=== PATIENT | male | born 1970 | race Asian ===

== ENCOUNTER 2019-06-11 06:09 | Day surgery (SDC) | payer OTHER ==
[~2019-06-11] VITALS: Ht 167.6 cm; Wt 77.1 kg
[2019-06-11] MEDS ORDERED: POLYMYXIN 500,000/BACIT.10,000 UNITS in NS IRR 1 L IR ONE (06:54)
[2019-06-11] MEDS ORDERED: NEOSTIGMINE METHYLSULFATE 1 MG/ML, 10 ML VIAL IVP ONE (07:02)
[2019-06-11] MEDS ORDERED: MIDAZOLAM HCL 5 MG/5 ML VIAL IVP ONE (07:02)
[2019-06-11] MEDS ORDERED: TRIAMCINOLONE ACETONIDE 40 MG/ML IM ONE (07:02)
[2019-06-11] MEDS ORDERED: fentaNYL CITRATE 250 MCG/5 ML AMP IV ONE (07:02)
[2019-06-11] MEDS ORDERED: LR 1,000 ML IV.SOLN IV ONE (07:02)
[2019-06-11] MEDS ORDERED: GLYCOPYRROLATE 0.2 MG/ML VIAL IJ ONE (07:02)
[2019-06-11] MEDS ORDERED: ONDANSETRON HCL 4 MG/2 ML VIAL IVP ONE (07:02)
[2019-06-11] MEDS ORDERED: ROCURONIUM BROMIDE 10 MG/ML (ZEMURON) IV ONE (07:02)
[2019-06-11] MEDS ORDERED: LIDOCAINE/EPI 1% 1:100000 20 ML VIAL INJ ONE (07:02)
[2019-06-11] MEDS ORDERED: PROPOFOL 200MG/ 20ML VIAL (DIPRIVAN) IV ONE (07:02)
[2019-06-11] MEDS ORDERED: BACITRACIN ZINC 15 GM TOPICAL OINTMENT TP ONE (07:02)
[2019-06-11] MEDS ORDERED: DEXAMETHASONE SOD PHOSPHATE 4 MG/ML VIAL IVP ONE (07:02)
[2019-06-11] MEDS ORDERED: SEVOFLURANE 15 MIN GAS INH ONE (07:02)
[2019-06-11] MEDS ORDERED: CEFAZOLIN 1 GM IVPB PREMIX 50 ML IV ONE (07:25)
[2019-06-11] MEDS ORDERED: LR 1,000 ML IV SCH (08:16)
[2019-06-11] MEDS ORDERED: METOCLOPRAMIDE HCL 10 MG/2 ML VIAL IVP PRN (08:30)
[2019-06-11] MEDS ORDERED: MORPHINE 4 MG/ML INJ. SYRINGE IVP PRN ×3 (08:30)
[2019-06-11] MEDS ORDERED: HYDROcodone/ACETAMIN 5-325 MG TAB (NORCO/ VICODIN) PO PRN (09:00)
[2019-06-11 10:28] VITALS: BP_SYST 126
== END 2019-06-11 12:15 | disposition home or self-care (01) ==
LOC: SDS 06:09 → SMU 06:10 → SDS 12:15
PROVIDERS: ATTEND Otolaryngology Plastic Surgery within the Head & Neck
DX: J32.9 Chronic sinusitis, unspecified (principal); J33.8 Other polyp of sinus
CPT/HCPCS: 87070-TC; 87075-TC; 88305; A4649; J0690; J1100; J2250; J2405; J2704; J2710; J3010; J3301; J3490; J7120